=== PATIENT | male | born 1950 | race Caucasian/White ===

== ENCOUNTER 2018-07-02 06:15 | Observation (INO) | payer MEDICARE ==
[2018-07-02] MEDS ORDERED: Sodium Chloride 0.9% 2.5 ML Syringe FLUSH PRN ×2 (06:29→09:44)
[2018-07-02] MEDS ORDERED: Sodium Chloride 0.9% 10 ML Syringe FLUSH PRN ×2 (06:29→09:44)
[2018-07-02] MEDS ORDERED: Albuterol/Ipratropium 3.0-0.5 MG/3 ML Neb Soln NEB ONE (06:29)
--- NOTE | 2018-07-02 06:39 | EDM.PDOC ---
ED HPI GENERAL MEDICAL PROBLEM - General Chief Complaint: Syncope Stated Complaint: PASSED OUT Time Seen by Provider: 07/02/18 06:17 - History of Present Illness INITIAL COMMENTS - FREE TEXT/NARRATIVE: HISTORY AND PHYSICAL: History of present illness: The patient is a 68-year-old man who is visiting from [place] and has been here for about a month and presents after coughing so hard this morning approximately an hour and a half ago that he passed out. The patient states that he has a history of hypertension hypothyroidism and has had peripheral vascular disease with stents in his legs but no cardiac problems, abdominal/ stomach surgery in the past with a residual ventral wall hernia and a history of an ascending aortic aneurysm that his doctor at home is watching and who says that approximately a week or so ago he was having coughing and upper respiratory symptoms and went to a local walk-in clinic. He was given a nebulizer treatment and inhaler for home as well as Zithromax and prednisone all of which he has finished. He says that he has been eating and drinking normally and has no abdominal problems vomiting or diarrhea and no extremity complaints neck or back complaints. He says that he was sleeping when he woke up suddenly and had a coughing episode and that got up to go to the bathroom and then proceeded to have a syncopal event. He said the next thing he recalls after coughing in the bathroom was that he was on the ground with his over him. The patient says that he has no head neck or back pain but has some discomfort at his left posterior ribs and soft tissue flank and has a small skin tear on his left forearm. He denies fever or any fevers with his symptomatology for which she was seen at the urgent care. As any extremity pain and says that he does have chronic episodic peripheral edema of his legs and he has some now currently. He does not feel nauseated and he only feels a little bit gurgly and short of breath but not as bad as earlier. He says he feels like he is wheezy when he is breathing and he feels that internally. He has no left- sided chest pain and no neurosensory changes. He ambulated into the ED and came in through triage with his . The tells me at bedside that the patient has been coughing up very thick mucus since he was seen at the urgent care. Review of systems: As per history of present illness and below otherwise all systems reviewed and negative. Past medical history: As per history of present illness and as reviewed below otherwise noncontributory. Surgical history: As per history of present illness and as reviewed below otherwise noncontributory. Social history: No reported history of drug or alcohol abuse. Family history: As per history of present illness and as reviewed below otherwise noncontributory. Physical exam: General: Well-developed well-nourished overweight man who is nontoxic and speaking clearly and easily in the ED. His vital signs were noted by me. He is not breathless on evaluation. His O2 sat on room air was 92%. HEENT: Atraumatic, normocephalic, pupils reactive, negative for conjunctival pallor or scleral icterus, mucous membranes moist, throat clear, neck supple, nontender, trachea midline. He has no palpable deformities of his scalp and facial bones are intact without any soft tissue injuries appreciated in these areas and there are no midline step-offs in his defects of the cervical spine. Lungs: Diminished breath sounds in the bases left greater than right but there is no stridor or wheezing appreciated, breath sounds equal bilaterally, chest nontender. He has no bony deformities crepitus or tenderness with palpation of the ribs anteriorly but at the posterior left ribs there is some tenderness and there is an ill-defined area of abrasion/ecchymosis seen at the posterior left ribs extending down the left flank soft tissue to the posterior iliac crest area. There is no palpable bony deformities or crepitus here. Heart: S1S2, regular rate and rhythm no overt murmurs are appreciated Abdomen: Soft, nondistended, nontender. Patient has a well-healed mid abdominal scar with a very large ventral wall hernia which is not tender and bowel sounds are normoactive. Negative for masses or hepatosplenomegaly. Negative for costovertebral tenderness. Pelvis: Stable nontender. No bony hip tenderness on lateral palpation Genitourinary: Deferred. Rectal: Deferred. Extremities: Atraumatic full range of motion of all extremities with the exception of the left volar forearm with there is a small area of skin tear but no bony deformities or soft tissue swelling and a very superficial abrasion at the right knee without bony deformities defects or soft tissue swelling. The legs are, negative for cords or calf pain. Neurovascular unremarkable. The patient does have trace pedal edema bilaterally and no discrete calf tenderness. Neuro: Awake, alert, oriented. Cranial nerves II through XII unremarkable. Cerebellum unremarkable. Motor and sensory unremarkable throughout. Exam nonfocal. Gait was steady into the ED Back: There are no midline step-offs tenderness defects of the thoracic or lumbar spine and the posterior lower left rib area and flank area are as described above Diagnostics: EKG CBC CMP INR lipase troponin UA CT scan of the head chest abdomen and pelvis , BNP 1 view chest x-ray Therapeutics: IV O2 monitor duo neb Solumedrol IV fluids After my initial interview with the patient and nursing was in placing a line and interviewing the patient the patient started having a coughing spasm where he clearly was exhibiting great work of breathing and some audible wheezing and stridor and he desaturated down to 69% until he was able to expectorate a large amount of thick mucus. The patient does not lose consciousness and is at bedside stating that this is what he has been doing with this thick mucus is having similar coughing events. This appears to be what the trigger was for his syncopal event this morning. 0645: I discussed this case with Dr. Forde as this patient will shortly be an admission and I wanted to give him the background and course of events up to this point. We will recontact him with more information once we get testing results back. 0700: All testing results have been endorsed to Dr. Parry to follow-up and develop a care plan. I have discussed this case with Dr. Forde so he is aware of this case as he will shortly be an admission. He accepts the case but would like more information and Dr. Parry we'll recontact him with that information. Impression: Syncopal event post tussive with left back contusions and scattered abrasions, dyspnea with history of recent upper respiratory tract infection Definitive disposition and diagnosis as appropriate pending reevaluation and review of above. 1915pm: According to report from Dr. Parry this evening when I told her about this case she followed up on all testing results and admit the patient. He did not have any other episodes of bronchospasm or coughing while in the ED and remained stable. She did discuss all testing results with Dr. Forde who accepted the patient for admission left mid back Pain Score (Numeric/FACES): 7 - Related Data Allergies Allergy/AdvReac Type Severity Reaction Status Date / Time No Known Allergies Allergy Verified 07/02/18 06:21 Home Meds: Home Meds Allopurinol [Zyloprim] 100 mg PO BEDTIME 07/02/18 [History] Calcium Carbonate [Calcium] 600 mg PO BEDTIME 07/02/18 [History] Cholecalciferol (Vitamin D3) [Vitamin D] 2,000 unit PO BEDTIME 07/02/18 [History ] Clopidogrel [Plavix] 75 mg PO ACBREAKFAST 07/02/18 [History] Cyanocobalamin (Vitamin B-12) [Cyanocobalamin Injection] 1,000 mcg IJ ASDIRECTED 07/02/18 [History] Levothyroxine [Synthroid] 50 mcg PO ACBREAKFAST 07/02/18 [History] Metoprolol Tartrate 25 mg PO ACBREAKFAST 07/02/18 [History] Pantoprazole Sodium [Protonix] 40 mg PO BEDTIME 07/02/18 [History] Sertraline [Zoloft] 12.5 mg BEDTIME 07/02/18 [History] Spironolactone 50 mg PO ACBREAKFAST 07/02/18 [History] Tamsulosin [Tamsulosin 24 Hr] 0.4 mg PO BEDTIME 07/02/18 [History] atorvaSTATin [Lipitor] 10 mg PO BEDTIME 07/02/18 [History] ED ROS GENERAL - Review of Systems Review Of Systems: ROS reveals no pertinent complaints other than HPI. ED EXAM, GENERAL - Physical Exam Exam: See Below (see dictation) Course - Vital Signs Last Recorded V/S: Last Vital Signs Temp 36.9 C 07/02/18 16:00 Pulse 96 07/02/18 16:00 Resp 16 07/02/18 16:00 BP 133/81 07/02/18 16:00 Pulse Ox 98 07/02/18 16:00 - Orders/Labs/Meds Orders: Active Orders 24 hr Category Date Time Status Abdomen Pelvis wo Cont [CT] Stat Exams 07/02/18 06:28 Taken Chest 1V Frontal [CR] Stat Exams 07/02/18 06:40 Taken Chest wo Cont [CT] Stat Exams 07/02/18 06:28 Taken Head wo Cont [CT] Stat Exams 07/02/18 06:27 Taken Sodium Chloride 0.9% [Saline Flush] Med 07/02/18 06:29 Active 10 ml FLUSH ASDIRECTED PRN Sodium Chloride 0.9% [Saline Flush] Med 07/02/18 06:29 Active 2.5 ml FLUSH ASDIRECTED PRN Saline Lock Insert [OM.PC] Stat Oth 07/02/18 06:27 Ordered Medication Orders Acetaminophen (Tylenol) 650 mg PO Q4H PRN PRN Reason: Pain (Mild 1-3)/fever Last Admin: 07/02/18 10:51 Dose: 650 mg Albuterol/Ipratropium (Duoneb 3.0-0.5 Mg/3 Ml) 3 ml NEB Q4HRRT [facility] Last Admin: 07/02/18 17:28 Dose: 3 ml Allopurinol (Zyloprim) 100 mg PO BEDTIME MICHELLE Atorvastatin Calcium (Lipitor) 10 mg PO BEDTIME [facility] Calcium Citrate (Calcitrate + Vit D Cap (315 Mg/250 Units)) 2 each PO BEDTIME MICHELLE Cholecalciferol (Vitamin D3) 2,000 units PO BEDTIME [facility] Clopidogrel Bisulfate (Plavix) 75 mg PO ACBREAKFAST [facility] Enoxaparin Sodium (Lovenox) 40 mg SUBCUT Q24H [facility] Last Admin: 07/02/18 10:51 Dose: 40 mg Levofloxacin/Dextrose 750 mg/ (Premix) 150 mls @ 100 mls/hr IV Q24H [facility] Last Admin: 07/02/18 10:50 Dose: 100 mls/hr Sodium Chloride (Normal Saline) 1,000 mls @ 150 mls/hr IV ASDIRECTED [facility] Last Admin: 07/02/18 14:09 Dose: 150 mls/hr Levothyroxine Sodium (Synthroid) 50 mcg PO ACBREAKFAST [facility] Methylprednisolone Sodium Succinate (Solu-Medrol) 125 mg IVPUSH Q8H [facility] Last Admin: 07/02/18 14:05 Dose: 125 mg Metoprolol Tartrate (Lopressor) 25 mg PO ACBREAKFAST [facility] Ondansetron HCl (Zofran) 4 mg IVPUSH Q4H PRN PRN Reason: Nausea/Vomiting Pantoprazole Sodium (Protonix) 40 mg PO BEDTIME [facility] Sertraline HCl (Zoloft) 12.5 mg PO BEDTIME [facility] Sodium Chloride (Saline Flush) 10 ml FLUSH ASDIRECTED PRN PRN Reason: Keep Vein Open Last Admin: 07/02/18 08:13 Dose: 10 ml Sodium Chloride (Saline Flush) 2.5 ml FLUSH ASDIRECTED PRN PRN Reason: Keep Vein Open Sodium Chloride (Saline Flush) 10 ml FLUSH ASDIRECTED PRN PRN Reason: Keep Vein Open Sodium Chloride (Saline Flush) 2.5 ml FLUSH ASDIRECTED PRN PRN Reason: Keep Vein Open Spironolactone (Aldactone) 50 mg PO ACBREAKFAST MICHELLE Tamsulosin HCl (Flomax) 0.4 mg PO BEDTIME MICHELLE Labs: Laboratory Tests 07/02/18 07/02/18 07/02/18 Range/Units 06:30 06:30 06:30 WBC 7.23 (4.0-11.0) K/uL RBC 4.19 L (4.50-5.90) M/uL Hgb 13.0 (13.0-17.0) g/dL Hct 41.2 (38.0-50.0) % MCV 98.3 H (80.0-98.0) fL MCH 31.0 (27.0-32.0) pg MCHC 31.6 (31.0-37.0) g/dL RDW Std Deviation 51.4 (28.0-62.0) fl RDW Coeff of Michael 15 (11.0-15.0) % Plt Count 157 (150-400) K/uL MPV 11.20 (7.40-12.00) fL Neut % (Auto) 60.7 (48.0-80.0) % Lymph % (Auto) 24.9 (16.0-40.0) % [place] % (Auto) 11.3 (0.0-15.0) % Eos % (Auto) 2.5 (0.0-7.0) % Baso % (Auto) 0.6 (0.0-1.5) % Neut # (Auto) 4.4 (1.4-5.7) K/uL Lymph # (Auto) 1.8 (0.6-2.4) K/uL [place] # (Auto) 0.8 (0.0-0.8) K/uL Eos # (Auto) 0.2 (0.0-0.7) K/uL Baso # (Auto) 0.0 (0.0-0.1) K/uL INR 1.02 Lactate (0.20-2.00) mmol/L Sodium 143 (136-148) mmol/L Potassium 3.8 (3.5-5.1) mmol/L Chloride 109 H (98-107) mmol/L Carbon Dioxide 25.4 (21.0-32.0) mmol/L BUN 22 H (7.0-18.0) mg/dL Creatinine 1.5 H (0.8-1.3) mg/dL Est Cr Clr Drug Dosing 51.01 mL/min Estimated GFR (MDRD) 46.4 ml/min Glucose 107 H (74-106) mg/dL Calcium 8.2 L (8.5-10.1) mg/dL Total Bilirubin 0.5 (0.2-1.0) mg/dL AST 17 (15-37) IU/L ALT 16 (14-63) IU/L Alkaline Phosphatase 104 (46-116) U/L Troponin I < 0.050 (0.000-0.056) ng/mL B-Natriuretic Peptide (<100) PG/ML Total Protein 6.9 (6.4-8.2) g/dL Albumin 3.1 L (3.4-5.0) g/dL Globulin 3.8 H (2.0-3.5) g/dL Albumin/Globulin Ratio 0.8 L (1.3-2.8) Lipase 159 (73-393) U/L 07/02/18 07/02/18 Range/Units 06:30 06:55 WBC (4.0-11.0) K/uL RBC (4.50-5.90) M/uL Hgb (13.0-17.0) g/dL Hct (38.0-50.0) % MCV (80.0-98.0) fL MCH (27.0-32.0) pg MCHC (31.0-37.0) g/dL RDW Std Deviation (28.0-62.0) fl RDW Coeff of Michael (11.0-15.0) % Plt Count (150-400) K/uL MPV (7.40-12.00) fL Neut % (Auto) (48.0-80.0) % Lymph % (Auto) (16.0-40.0) % [place] % (Auto) (0.0-15.0) % Eos % (Auto) (0.0-7.0) % Baso % (Auto) (0.0-1.5) % Neut # (Auto) (1.4-5.7) K/uL Lymph # (Auto) (0.6-2.4) K/uL [place] # (Auto) (0.0-0.8) K/uL Eos # (Auto) (0.0-0.7) K/uL Baso # (Auto) (0.0-0.1) K/uL INR Lactate 2.5 H (0.20-2.00) mmol/L Sodium (136-148) mmol/L Potassium (3.5-5.1) mmol/L Chloride (98-107) mmol/L Carbon Dioxide (21.0-32.0) mmol/L BUN (7.0-18.0) mg/dL Creatinine (0.8-1.3) mg/dL Est Cr Clr Drug Dosing mL/min Estimated GFR (MDRD) ml/min Glucose (74-106) mg/dL Calcium (8.5-10.1) mg/dL Total Bilirubin (0.2-1.0) mg/dL AST (15-37) IU/L ALT (14-63) IU/L Alkaline Phosphatase (46-116) U/L Troponin I (0.000-0.056) ng/mL B-Natriuretic Peptide 18 (<100) PG/ML Total Protein (6.4-8.2) g/dL Albumin (3.4-5.0) g/dL Globulin (2.0-3.5) g/dL Albumin/Globulin Ratio (1.3-2.8) Lipase (73-393) U/L Meds: Medications Generic Name Dose Route Start Last Admin Trade Name Freq PRN Reason Stop Dose Admin Acetaminophen 650 mg 07/02/18 09:44 07/02/18 10:51 Tylenol PO 650 mg Q4H PRN Administration Pain (Mild 1-3)/fever Albuterol/Ipratropium 3 ml 07/02/18 18:00 07/02/18 17:28 Duoneb 3.0-0.5 Mg/3 Ml NEB 3 ml Q4HRRT MICHELLE Administration Allopurinol 100 mg 07/02/18 21:00 Zyloprim PO BEDTIME MICHELLE Atorvastatin Calcium 10 mg 07/02/18 21:00 Lipitor PO BEDTIME MICHELLE Calcium Citrate 2 each 07/02/18 21:00 Calcitrate + Vit D Cap (315 Mg/250 Units) PO BEDTIME [facility] Cholecalciferol 2,000 units 07/02/18 21:00 Vitamin D3 PO BEDTIME [facility] Clopidogrel Bisulfate 75 mg 07/03/18 07:30 Plavix PO ACBREAKFAST [facility] Enoxaparin Sodium 40 mg 07/02/18 09:45 07/02/18 10:51 Lovenox SUBCUT 40 mg Q24H MICHELLE Administration Levofloxacin/Dextrose 750 mg/ 150 mls @ 100 mls/hr 07/02/18 09:45 07/02/18 10 :50 Premix IV 100 mls/hr Q24H MICHELLE Administration Sodium Chloride 1,000 mls @ 150 mls/hr 07/02/18 09:45 07/02/18 14:09 Normal Saline IV 150 mls/hr ASDIRECTED MICHELLE Administration Levothyroxine Sodium 50 mcg 07/03/18 07:30 Synthroid PO ACBREAKFAST [facility] Methylprednisolone Sodium Succinate 125 mg 07/02/18 12:00 07/02/18 14:05 Solu-Medrol IVPUSH 125 mg Q8H MICHELLE Administration Metoprolol Tartrate 25 mg 07/03/18 07:30 Lopressor PO ACBREAKFAST [facility] Ondansetron HCl 4 mg 07/02/18 09:44 Zofran IVPUSH Q4H PRN Nausea/Vomiting Pantoprazole Sodium 40 mg 07/02/18 21:00 Protonix PO BEDTIME [facility] Sertraline HCl 12.5 mg 07/02/18 21:00 Zoloft PO BEDTIME [facility] Sodium Chloride 10 ml 07/02/18 06:29 07/02/18 08:13 Saline Flush FLUSH 10 ml ASDIRECTED PRN Administration Keep Vein Open Sodium Chloride 2.5 ml 07/02/18 06:29 Saline Flush FLUSH ASDIRECTED PRN Keep Vein Open Sodium Chloride 10 ml 07/02/18 09:44 Saline Flush FLUSH ASDIRECTED PRN Keep Vein Open Sodium Chloride 2.5 ml 07/02/18 09:44 Saline Flush FLUSH ASDIRECTED PRN Keep Vein Open Spironolactone 50 mg 07/03/18 07:30 Aldactone PO ACBREAKFAST MICHELLE Tamsulosin HCl 0.4 mg 07/02/18 21:00 Flomax PO BEDTIME MICHELLE Discontinued Medications Generic Name Dose Route Start Last Admin Trade Name Freq PRN Reason Stop Dose Admin Albuterol/Ipratropium 3 ml 07/02/18 06:29 07/02/18 06:42 Duoneb 3.0-0.5 Mg/3 Ml NEB 07/02/18 06:30 3 ml ONETIME ONE Administration Albuterol/Ipratropium 3 ml 07/02/18 09:44 Duoneb 3.0-0.5 Mg/3 Ml NEB Q4HRRT PRN Shortness Of Breath/wheezing Sodium Chloride 1,000 mls @ 999 mls/hr 07/02/18 06:58 07/02/18 08:00 Normal Saline IV 07/02/18 07:58 83 mls/hr .Bolus ONE Infusion Methylprednisolone Sodium Succinate 125 mg 07/02/18 06:42 07/02/18 06:56 Solu-Medrol IVPUSH 07/02/18 06:43 125 mg ONETIME ONE Administration Morphine Sulfate 2 mg 07/02/18 08:03 07/02/18 08:13 Morphine IVPUSH 07/02/18 08:04 2 mg ONETIME ONE Administration Departure - Departure Time of Disposition: 08:00 Disposition: Admitted As Inpatient 65 Condition: Good Clinical Impression: Bronchospasm, acute Syncope Qualifiers: Syncope type: vasovagal syncope Qualified Code(s): R55 - Syncope and collapse - Discharge Information - My Orders Last 24 Hours: My Active Orders 07/02/18 06:27 Head wo Cont [CT] Stat Saline Lock Insert [OM.PC] Stat 07/02/18 06:28 Abdomen Pelvis wo Cont [CT] Stat Chest wo Cont [CT] Stat 07/02/18 06:29 Sodium Chloride 0.9% [Saline Flush] 10 ml FLUSH ASDIRECTED PRN Sodium Chloride 0.9% [Saline Flush] 2.5 ml FLUSH ASDIRECTED PRN 07/02/18 06:40 Chest 1V Frontal [CR] Stat - Assessment/Plan Last 24 Hours: My Active Orders 07/02/18 06:27 Head wo Cont [CT] Stat Saline Lock Insert [OM.PC] Stat 07/02/18 06:28 Abdomen Pelvis wo Cont [CT] Stat Chest wo Cont [CT] Stat 07/02/18 06:29 Sodium Chloride 0.9% [Saline Flush] 10 ml FLUSH ASDIRECTED PRN Sodium Chloride 0.9% [Saline Flush] 2.5 ml FLUSH ASDIRECTED PRN 07/02/18 06:40 Chest 1V Frontal [CR] Stat
[2018-07-02] MEDS ORDERED: methylPREDNISolone Sodium Succinate 125 MG/2 ML SDV IVPUSH ONE (06:42)
[2018-07-02 06:55] LABS: CHLORIDE,CL 109 mmol/L (98-107); SODIUM,NA 143 mmol/L (136-148)
[2018-07-02] MEDS ORDERED: Sodium Chloride 0.9% 1,000 ML IV ONE (06:58)
[2018-07-02] MEDS ORDERED: Morphine 2 MG/ML Syringe IVPUSH ONE (08:03)
[2018-07-02] MEDS ORDERED: Albuterol/Ipratropium 3.0-0.5 MG/3 ML Neb Soln NEB PRN (09:44)
[2018-07-02] MEDS ORDERED: Ondansetron 4 MG/2 ML SDV IVPUSH PRN (09:44)
[2018-07-02] MEDS: Levofloxacin/Dextrose 5%-Water 750 MG in Premix Bag 1 BAG IV SCH (10:50)
[2018-07-02] MEDS: Enoxaparin 40 MG/0.4 ML Syringe SUBCUT SCH (10:51)
[2018-07-02] MEDS: Acetaminophen 325 MG Tab PO PRN ×2 (10:51→21:23)
--- NOTE | 2018-07-02 12:09 | PCM.HP ---
H&P History of Present Illness - General Date of Service: 07/02/18 Admit Problem/Dx: Admission Diagnosis/Problem Admission Diagnosis/Problem Syncope - History of Present Illness Initial Comments - Free Text/Narative: The patient is a 68-year-old male who presented to the ER last night after a syncopal event. The patient reports that he had a coughing episode, he went to the bathroom, coughed some more and then woke up to find his standing over him. He denies hitting his head or any trauma. He was diagnosed with a URI last week and given a Z-Benigno, dose of steroids, and albuterol inhaler. He notes for the past day he's had to use his inhaler more often because he has been wheezing and couldn't catch his breath with coughing. In the ER, he had one of these coughing fits and desaturated to 69%. He was given duo nebs, Solu-Medrol and placed on O2. Initial lab work was done, he did not have a white count, troponin was negative, BNP was WNL, his lactate was elevated, and his creatinine was elevated. EKG showed sinus rhythm with borderline LAD, no ST changes. In the ER, they also got multiple imaging studies, a chest x-ray that showed borderline enlarged heart with low-grade pulmonary vascular congestion. CT of the head did not show any acute intracranial abnormalities. CT of the abdomen and pelvis did not show any acute traumatic injury, but did see renal lesions believed to be cysts. The CT chest showed no acute traumatic injury. When speaking to him on the floor. He states that he is still coughing, but he feels a little better. He denies any fever, chills or chest pain. left mid back Pain Score (Numeric/FACES): 7 - Related Data Allergies/Adverse Reactions: Allergies Allergy/AdvReac Type Severity Reaction Status Date / Time No Known Allergies Allergy Verified 07/02/18 06:21 Home Medications: Home Meds Allopurinol [Zyloprim] 100 mg PO BEDTIME 07/02/18 [History] Calcium Carbonate [Calcium] 600 mg PO BEDTIME 07/02/18 [History] Cholecalciferol (Vitamin D3) [Vitamin D] 2,000 unit PO BEDTIME 07/02/18 [History ] Clopidogrel [Plavix] 75 mg PO ACBREAKFAST 07/02/18 [History] Cyanocobalamin (Vitamin B-12) [Cyanocobalamin Injection] 1,000 mcg IJ ASDIRECTED 07/02/18 [History] Levothyroxine [Synthroid] 50 mcg PO ACBREAKFAST 07/02/18 [History] Metoprolol Tartrate 25 mg PO ACBREAKFAST 07/02/18 [History] Pantoprazole Sodium [Protonix] 40 mg PO BEDTIME 07/02/18 [History] Sertraline [Zoloft] 12.5 mg BEDTIME 07/02/18 [History] Spironolactone 50 mg PO ACBREAKFAST 07/02/18 [History] Tamsulosin [Tamsulosin 24 Hr] 0.4 mg PO BEDTIME 07/02/18 [History] atorvaSTATin [Lipitor] 10 mg PO BEDTIME 07/02/18 [History] Past Medical History HEENT History: Reports: Cataract Cardiovascular History: Reports: Hypertension Respiratory History: Reports: None Gastrointestinal History: Reports: Bowel Obstruction, GERD, GI Bleed Genitourinary History: Reports: Other (See Below) Other Genitourinary History: kidney failure in march 2016 Musculoskeletal History: Reports: None Neurological History: Reports: None Psychiatric History: Reports: Depression Endocrine/Metabolic History: Reports: Hypothyroidism Hematologic History: Reports: Anemia Oncologic (Cancer) History: Reports: None Dermatologic History: Reports: None - Infectious Disease History Infectious Disease History: Reports: Chicken Pox, Measles, Mumps - Past Surgical History HEENT Surgical History: Reports: Cataract Surgery Cardiovascular Surgical History: Reports: Aneurysm Other Cardiovascular Surgeries/Procedures: acsending aorta aneurysm, stents in both legs GI Surgical History: Reports: Cholecystectomy, Other (See Below) Other GI Surgeries/Procedures: gastric bypass Male Surgical History: Reports: None Social & Family History - Family History Family Medical History: Noncontributory - Tobacco Use Smoking Status *Q: Never Smoker Second Hand Smoke Exposure: No - Caffeine Use Caffeine Use: Reports: Soda - Alcohol Use Alcohol Use History: No - Recreational Drug Use Recreational Drug Use: No H&P Review of Systems - Review of Systems: Review Of Systems: See Below General: Reports: No Symptoms HEENT: Reports: No Symptoms Pulmonary: Reports: Shortness of Breath, Wheezing, Cough, Sputum Cardiovascular: Reports: Edema, Syncope. Denies: Chest Pain Gastrointestinal: Reports: No Symptoms Genitourinary: Reports: No Symptoms Musculoskeletal: Reports: No Symptoms Skin: Reports: No Symptoms Psychiatric: Reports: No Symptoms Neurological: Reports: Syncope. Denies: Confusion, Headache, Numbness, Tingling Hematologic/Lymphatic: Reports: No Symptoms Immunologic: Reports: No Symptoms Exam - Exam Exam: See Below - Vital Signs Vital Signs: Last Vital Signs Temp 99.1 F 07/02/18 09:45 Pulse 85 07/02/18 09:45 Resp 20 07/02/18 09:45 BP 146/86 H 07/02/18 09:45 Pulse Ox 97 07/02/18 06:57 Weight: 144.5 g - Exam Quality Assessment: Supplemental Oxygen General: Alert, Oriented, Cooperative HEENT: Conjunctiva Clear, EOMI, Mucosa Moist & [place], Posterior Pharynx Clear, Pupils Equal, Pupils Reactive Neck: Supple Lungs: Normal Respiratory Effort, Decreased Breath Sounds, Wheezing. No: Crackles, Rales Cardiovascular: Regular Rate, Regular Rhythm GI/Abdominal Exam: Normal Bowel Sounds, Soft, Non-Tender, No Distention Extremities: Normal Inspection, Pedal Edema (+1 pitting L>R) Skin: Warm, Dry Neuro Extensive - Motor, Sensory, Reflexes: CN II-XII Intact Psychiatric: Alert, Normal Affect, Normal Mood - Patient Data Lab Results Last 24 hrs: Laboratory Results - last 24 hr 07/02/18 07/02/18 07/02/18 Range/Units 06:30 06:30 06:30 WBC 7.23 (4.0-11.0) K/uL RBC 4.19 L (4.50-5.90) M/uL Hgb 13.0 (13.0-17.0) g/dL Hct 41.2 (38.0-50.0) % MCV 98.3 H (80.0-98.0) fL MCH 31.0 (27.0-32.0) pg MCHC 31.6 (31.0-37.0) g/dL RDW Std Deviation 51.4 (28.0-62.0) fl RDW Coeff of Michael 15 (11.0-15.0) % Plt Count 157 (150-400) K/uL MPV 11.20 (7.40-12.00) fL Neut % (Auto) 60.7 (48.0-80.0) % Lymph % (Auto) 24.9 (16.0-40.0) % [place] % (Auto) 11.3 (0.0-15.0) % Eos % (Auto) 2.5 (0.0-7.0) % Baso % (Auto) 0.6 (0.0-1.5) % Neut # (Auto) 4.4 (1.4-5.7) K/uL Lymph # (Auto) 1.8 (0.6-2.4) K/uL [place] # (Auto) 0.8 (0.0-0.8) K/uL Eos # (Auto) 0.2 (0.0-0.7) K/uL Baso # (Auto) 0.0 (0.0-0.1) K/uL INR 1.02 Lactate (0.20-2.00) mmol/L Sodium 143 (136-148) mmol/L Potassium 3.8 (3.5-5.1) mmol/L Chloride 109 H (98-107) mmol/L Carbon Dioxide 25.4 (21.0-32.0) mmol/L BUN 22 H (7.0-18.0) mg/dL Creatinine 1.5 H (0.8-1.3) mg/dL Est Cr Clr Drug Dosing 51.01 mL/min Estimated GFR (MDRD) 46.4 ml/min Glucose 107 H (74-106) mg/dL Calcium 8.2 L (8.5-10.1) mg/dL Total Bilirubin 0.5 (0.2-1.0) mg/dL AST 17 (15-37) IU/L ALT 16 (14-63) IU/L Alkaline Phosphatase 104 (46-116) U/L Troponin I < 0.050 (0.000-0.056) ng/mL B-Natriuretic Peptide (<100) PG/ML Total Protein 6.9 (6.4-8.2) g/dL Albumin 3.1 L (3.4-5.0) g/dL Globulin 3.8 H (2.0-3.5) g/dL Albumin/Globulin Ratio 0.8 L (1.3-2.8) Lipase 159 (73-393) U/L 07/02/18 07/02/18 07/02/18 Range/Units 06:30 06:55 11:20 WBC (4.0-11.0) K/uL RBC (4.50-5.90) M/uL Hgb (13.0-17.0) g/dL Hct (38.0-50.0) % MCV (80.0-98.0) fL MCH (27.0-32.0) pg MCHC (31.0-37.0) g/dL RDW Std Deviation (28.0-62.0) fl RDW Coeff of Michael (11.0-15.0) % Plt Count (150-400) K/uL MPV (7.40-12.00) fL Neut % (Auto) (48.0-80.0) % Lymph % (Auto) (16.0-40.0) % [place] % (Auto) (0.0-15.0) % Eos % (Auto) (0.0-7.0) % Baso % (Auto) (0.0-1.5) % Neut # (Auto) (1.4-5.7) K/uL Lymph # (Auto) (0.6-2.4) K/uL [place] # (Auto) (0.0-0.8) K/uL Eos # (Auto) (0.0-0.7) K/uL Baso # (Auto) (0.0-0.1) K/uL INR Lactate 2.5 H 1.9 (0.20-2.00) mmol/L Sodium (136-148) mmol/L Potassium (3.5-5.1) mmol/L Chloride (98-107) mmol/L Carbon Dioxide (21.0-32.0) mmol/L BUN (7.0-18.0) mg/dL Creatinine (0.8-1.3) mg/dL Est Cr Clr Drug Dosing mL/min Estimated GFR (MDRD) ml/min Glucose (74-106) mg/dL Calcium (8.5-10.1) mg/dL Total Bilirubin (0.2-1.0) mg/dL AST (15-37) IU/L ALT (14-63) IU/L Alkaline Phosphatase (46-116) U/L Troponin I (0.000-0.056) ng/mL B-Natriuretic Peptide 18 (<100) PG/ML Total Protein (6.4-8.2) g/dL Albumin (3.4-5.0) g/dL Globulin (2.0-3.5) g/dL Albumin/Globulin Ratio (1.3-2.8) Lipase (73-393) U/L Result Diagrams: 07/02/18 06:30 07/02/18 06:30 Problem List Initiated/Reviewed/Updated: Yes Orders Last 24hrs: Active Orders 24 hr Category Date Time Status Patient Status [ADT] Stat ADT 07/02/18 08:56 Active Cardiac Monitoring [RC] . DIRECTED Care 07/02/18 06:27 Active Height and Weight [RC] UPON Care 07/02/18 09:44 Active Intake and Output [RC] Q12H Care 07/02/18 09:45 Active Peripheral IV Care [RC] . DIRECTED Care 07/02/18 09:44 Active Pulse Oximetry [RC] CONTINUOUS Care 07/02/18 09:45 Active RT Aerosol Therapy [RC] ASDIRECTED Care 07/02/18 09:51 Active Up With Assistance [RC] ASDIRECTED Care 07/02/18 09:44 Active VTE/DVT Education [RC] PER UNIT ROUTINE Care 07/02/18 09:45 Active Vital Signs [RC] Q4H Care 07/02/18 09:45 Active Regular Diet [DIET] Diet 07/02/18 Breakfast Active Abdomen Pelvis wo Cont [CT] Stat Exams 07/02/18 06:28 Taken Chest 1V Frontal [CR] Stat Exams 07/02/18 06:40 Taken Chest wo Cont [CT] Stat Exams 07/02/18 06:28 Taken Head wo Cont [CT] Stat Exams 07/02/18 06:27 Taken CBC WITH AUTO DIFF [HEME] AM Lab 07/03/18 05:11 Ordered COMPREHENSIVE METABOLIC PN,CMP [CHEM] AM Lab 07/03/18 05:11 Ordered LACTIC ACID,WHOLE BLOOD [BG] Q4H Lab 07/02/18 12:00 Ordered LACTIC ACID,WHOLE BLOOD [BG] Q4H Lab 07/02/18 16:00 Ordered LACTIC ACID,WHOLE BLOOD [BG] Q4H Lab 07/02/18 20:00 Ordered LACTIC ACID,WHOLE BLOOD [BG] Q4H Lab 07/03/18 00:00 Ordered UA W/MICROSCOPIC [URIN] Stat Lab 07/02/18 06:27 Ordered Acetaminophen [Tylenol] Med 07/02/18 09:44 Active 650 mg PO Q4H PRN Albuterol/Ipratropium [DuoNeb 3.0-0.5 MG/3 ML] Med 07/02/18 09:44 Active 3 ml NEB Q4HRRT PRN Enoxaparin [Lovenox] Med 07/02/18 09:45 Active 40 mg SUBCUT Q24H Levofloxacin/Dextrose 5%-Water [Levaquin in D5W 750 MG/ Med 07/02/18 09:45 Active 150 ML] 750 mg Premix Bag 1 bag IV Q24H Ondansetron [Zofran] Med 07/02/18 09:44 Active 4 mg IVPUSH Q4H PRN Sodium Chloride 0.9% [Normal Saline] 1,000 ml Med 07/02/18 09:45 Active IV ASDIRECTED Sodium Chloride 0.9% [Saline Flush] Med 07/02/18 06:29 Active 10 ml FLUSH ASDIRECTED PRN Sodium Chloride 0.9% [Saline Flush] Med 07/02/18 09:44 Active 10 ml FLUSH ASDIRECTED PRN Sodium Chloride 0.9% [Saline Flush] Med 07/02/18 06:29 Active 2.5 ml FLUSH ASDIRECTED PRN Sodium Chloride 0.9% [Saline Flush] Med 07/02/18 09:44 Active 2.5 ml FLUSH ASDIRECTED PRN methylPREDNISolone Sod Succ [Solu-MEDROL] Med 07/02/18 12:00 Ordered 125 mg IVPUSH Q8H Peripheral IV Insertion Adult [OM.PC] Routine Oth 07/02/18 09:44 Ordered Saline Lock Insert [OM.PC] Routine Oth 07/02/18 09:44 Ordered Saline Lock Insert [OM.PC] Stat Oth 07/02/18 06:27 Ordered Sequential Compression Device [OM.PC] Per Unit Routine Oth 07/02/18 09:45 Ordered Medication Orders Acetaminophen (Tylenol) 650 mg PO Q4H PRN PRN Reason: Pain (Mild 1-3)/fever Last Admin: 07/02/18 10:51 Dose: 650 mg Albuterol/Ipratropium (Duoneb 3.0-0.5 Mg/3 Ml) 3 ml NEB Q4HRRT PRN PRN Reason: Shortness Of Breath/wheezing Enoxaparin Sodium (Lovenox) 40 mg SUBCUT Q24H [facility] Last Admin: 07/02/18 10:51 Dose: 40 mg Levofloxacin/Dextrose 750 mg/ (Premix) 150 mls @ 100 mls/hr IV Q24H [facility] Last Admin: 07/02/18 10:50 Dose: 100 mls/hr Sodium Chloride (Normal Saline) 1,000 mls @ 150 mls/hr IV ASDIRECTED [facility] Methylprednisolone Sodium Succinate (Solu-Medrol) 125 mg IVPUSH Q8H [facility] Ondansetron HCl (Zofran) 4 mg IVPUSH Q4H PRN PRN Reason: Nausea/Vomiting Sodium Chloride (Saline Flush) 10 ml FLUSH ASDIRECTED PRN PRN Reason: Keep Vein Open Last Admin: 07/02/18 08:13 Dose: 10 ml Sodium Chloride (Saline Flush) 2.5 ml FLUSH ASDIRECTED PRN PRN Reason: Keep Vein Open Sodium Chloride (Saline Flush) 10 ml FLUSH ASDIRECTED PRN PRN Reason: Keep Vein Open Sodium Chloride (Saline Flush) 2.5 ml FLUSH ASDIRECTED PRN PRN Reason: Keep Vein Open Assessment/Plan Comment:: 1. admit for observation 2. Code status- full 3. Vitals per routine 4. I/Os per routine 5. DVT prophylaxis with lovenox 6. Diet- heart healthy 7. Syncopal episode likely vasovagal related to coughing- monitor on telemetry 8. Bronchitis- duonebs q 4, solumedrol 125 mg q 8, continue levaquin. Monitor on pulse ox. Repeat lactate was normal 9. RADHA- will give IV fluids
[2018-07-02] MEDS: methylPREDNISolone Sodium Succinate 125 MG/2 ML SDV IVPUSH SCH ×2 (14:05→19:50)
[2018-07-02] MEDS: Sodium Chloride 0.9% 1,000 ML IV SCH ×2 (14:09→20:04)
[2018-07-02] MEDS: Albuterol/Ipratropium 3.0-0.5 MG/3 ML Neb Soln NEB SCH ×2 (17:28→21:32)
[2018-07-02] MEDS: oxyCODONE 5 MG Tab PO PRN (19:49)
[2018-07-02] MEDS: Pantoprazole 40 MG Tab.CR PO SCH (21:18)
[2018-07-02] MEDS: atorvaSTATin 10 MG Tab PO SCH (21:18)
[2018-07-02] MEDS: Allopurinol 100 MG Tab PO SCH (21:18)
[2018-07-02] MEDS: Cholecalciferol (Vitamin D3) 1,000 Unit Tab PO SCH (21:18)
[2018-07-02] MEDS: Tamsulosin 0.4 MG Cap.ER PO SCH (21:19)
[2018-07-02] MEDS: Sertraline 25 MG Tab PO SCH (21:19)
[2018-07-02] MEDS: Calcium Citrate/Vitamin D3 Tablet PO SCH (23:07)
[2018-07-03] MEDS: Albuterol/Ipratropium 3.0-0.5 MG/3 ML Neb Soln NEB SCH ×5 (01:49→17:33)
[2018-07-03] MEDS: oxyCODONE 5 MG Tab PO PRN ×4 (01:54→23:36)
[2018-07-03] MEDS: Sodium Chloride 0.9% 1,000 ML IV SCH ×3 (02:44→19:42)
[2018-07-03] MEDS: methylPREDNISolone Sodium Succinate 125 MG/2 ML SDV IVPUSH SCH ×3 (03:32→12:51)
[2018-07-03] MEDS: Metoprolol Tartrate 25 MG Tab PO SCH (06:39)
[2018-07-03] MEDS: Clopidogrel 75 MG Tab PO SCH (06:39)
[2018-07-03] MEDS: Levothyroxine 50 MCG Tab PO SCH (06:40)
[2018-07-03] MEDS: Spironolactone 25 MG Tab PO SCH (06:40)
--- NOTE | 2018-07-03 08:51 | PCM.PN ---
- General Info Date of Service: 07/03/18 Subjective Update: The patient is a 68 year old male admitted for syncopal event and bronchitis. The patient had a syncopal event yesterday at home after coughing episdoe, no syncope since admission. He reports his breathing is better but he is still requiring oxygen. He is complaining of left side flank pain. When he had his syncopal event he fell in the bathroom, he hit his back on the toilet, imaging was negative for injury. He denies any chest pain, abdominal pain, difficulty eating or drinking. - Review of Systems General: Reports: No Symptoms HEENT: Reports: No Symptoms Pulmonary: Reports: Shortness of Breath, Cough Cardiovascular: Reports: No Symptoms Gastrointestinal: Reports: No Symptoms Genitourinary: Reports: No Symptoms Musculoskeletal: Reports: Back Pain Skin: Reports: No Symptoms Neurological: Reports: No Symptoms Psychiatric: Reports: No Symptoms - Patient Data Vitals - Most Recent: Last Vital Signs Temp 98.6 F 07/03/18 04:00 Pulse 82 07/03/18 06:39 Resp 18 07/03/18 04:00 BP 106/66 07/03/18 06:39 Pulse Ox 97 07/03/18 04:00 Weight - Most Recent: 144.5 g I&O - Last 24 Hours: Intake & Output 07/02/18 07/03/18 07/03/18 22:59 06:59 14:59 Intake Total 600 2047 Output Total 850 650 Balance -250 1397 Lab Results Last 24 Hours: Laboratory Results - last 24 hr 07/02/18 07/02/18 07/03/18 Range/Units 11:20 13:20 05:56 WBC 7.97 (4.0-11.0) K/uL RBC 3.90 L (4.50-5.90) M/uL Hgb 11.8 L (13.0-17.0) g/dL Hct 37.4 L (38.0-50.0) % MCV 95.9 (80.0-98.0) fL MCH 30.3 (27.0-32.0) pg MCHC 31.6 (31.0-37.0) g/dL RDW Std Deviation 51.6 (28.0-62.0) fl RDW Coeff of Michael 15 (11.0-15.0) % Plt Count 149 L (150-400) K/uL MPV 11.20 (7.40-12.00) fL Neut % (Auto) 89.3 H (48.0-80.0) % Lymph % (Auto) 9.4 L (16.0-40.0) % [place] % (Auto) 1.3 (0.0-15.0) % Eos % (Auto) 0.0 (0.0-7.0) % Baso % (Auto) 0.0 (0.0-1.5) % Neut # (Auto) 7.1 H (1.4-5.7) K/uL Lymph # (Auto) 0.8 (0.6-2.4) K/uL [place] # (Auto) 0.1 (0.0-0.8) K/uL Eos # (Auto) 0.0 (0.0-0.7) K/uL Baso # (Auto) 0.0 (0.0-0.1) K/uL Nucleated RBC % 0.0 /100WBC Nucleated RBCs # 0 K/uL Lactate 1.9 (0.20-2.00) mmol/L Sodium (136-148) mmol/L Potassium (3.5-5.1) mmol/L Chloride (98-107) mmol/L Carbon Dioxide (21.0-32.0) mmol/L BUN (7.0-18.0) mg/dL Creatinine (0.8-1.3) mg/dL Est Cr Clr Drug Dosing mL/min Estimated GFR (MDRD) ml/min Glucose (74-106) mg/dL Calcium (8.5-10.1) mg/dL Total Bilirubin (0.2-1.0) mg/dL AST (15-37) IU/L ALT (14-63) IU/L Alkaline Phosphatase (46-116) U/L Total Protein (6.4-8.2) g/dL Albumin (3.4-5.0) g/dL Globulin (2.0-3.5) g/dL Albumin/Globulin Ratio (1.3-2.8) Urine Color YELLOW Urine Appearance CLEAR Urine pH 5.5 (5.0-8.0) Ur Specific [place] >= 1.030 (1.001-1.035) Urine Protein NEGATIVE (NEGATIVE) mg/dL Urine Glucose (UA) 100 H (NEGATIVE) mg/dL Urine Ketones NEGATIVE (NEGATIVE) mg/dL Urine Occult Blood MODERATE (NEGATIVE) Urine Nitrite NEGATIVE (NEGATIVE) Urine Bilirubin NEGATIVE (NEGATIVE) Urine Urobilinogen 0.2 (<2.0) EU/dL Ur Leukocyte Esterase NEGATIVE (NEGATIVE) Urine RBC 2-3 (0-2/HPF) Urine WBC 1-2 (0-5/HPF) Ur Epithelial Cells RARE (NONE-FEW) Amorphous Sediment FEW (NEGATIVE) Urine Bacteria FEW (NEGATIVE) Urine Mucus FEW (NONE-MOD) 07/03/18 Range/Units 05:56 WBC (4.0-11.0) K/uL RBC (4.50-5.90) M/uL Hgb (13.0-17.0) g/dL Hct (38.0-50.0) % MCV (80.0-98.0) fL MCH (27.0-32.0) pg MCHC (31.0-37.0) g/dL RDW Std Deviation (28.0-62.0) fl RDW Coeff of Michael (11.0-15.0) % Plt Count (150-400) K/uL MPV (7.40-12.00) fL Neut % (Auto) (48.0-80.0) % Lymph % (Auto) (16.0-40.0) % [place] % (Auto) (0.0-15.0) % Eos % (Auto) (0.0-7.0) % Baso % (Auto) (0.0-1.5) % Neut # (Auto) (1.4-5.7) K/uL Lymph # (Auto) (0.6-2.4) K/uL [place] # (Auto) (0.0-0.8) K/uL Eos # (Auto) (0.0-0.7) K/uL Baso # (Auto) (0.0-0.1) K/uL Nucleated RBC % /100WBC Nucleated RBCs # K/uL Lactate (0.20-2.00) mmol/L Sodium 142 (136-148) mmol/L Potassium 4.5 (3.5-5.1) mmol/L Chloride 111 H (98-107) mmol/L Carbon Dioxide 24.0 (21.0-32.0) mmol/L BUN 20 H (7.0-18.0) mg/dL Creatinine 1.4 H (0.8-1.3) mg/dL Est Cr Clr Drug Dosing 0.10 mL/min Estimated GFR (MDRD) 50.2 ml/min Glucose 157 H (74-106) mg/dL Calcium 7.9 L (8.5-10.1) mg/dL Total Bilirubin 0.3 (0.2-1.0) mg/dL AST 13 L (15-37) IU/L ALT 15 (14-63) IU/L Alkaline Phosphatase 85 (46-116) U/L Total Protein 6.2 L (6.4-8.2) g/dL Albumin 2.8 L (3.4-5.0) g/dL Globulin 3.4 (2.0-3.5) g/dL Albumin/Globulin Ratio 0.8 L (1.3-2.8) Urine Color Urine Appearance Urine pH (5.0-8.0) Ur Specific [place] (1.001-1.035) Urine Protein (NEGATIVE) mg/dL Urine Glucose (UA) (NEGATIVE) mg/dL Urine Ketones (NEGATIVE) mg/dL Urine Occult Blood (NEGATIVE) Urine Nitrite (NEGATIVE) Urine Bilirubin (NEGATIVE) Urine Urobilinogen (<2.0) EU/dL Ur Leukocyte Esterase (NEGATIVE) Urine RBC (0-2/HPF) Urine WBC (0-5/HPF) Ur Epithelial Cells (NONE-FEW) Amorphous Sediment (NEGATIVE) Urine Bacteria (NEGATIVE) Urine Mucus (NONE-MOD) Med Orders - Current: Current Medications Acetaminophen (Tylenol) 650 mg PO Q4H PRN PRN Reason: Pain (Mild 1-3)/fever Last Admin: 07/02/18 21:23 Dose: 650 mg Albuterol/Ipratropium (Duoneb 3.0-0.5 Mg/3 Ml) 3 ml NEB Q4HRRT [facility] Last Admin: 07/03/18 06:02 Dose: 3 ml Allopurinol (Zyloprim) 100 mg PO BEDTIME [facility] Last Admin: 07/02/18 21:18 Dose: 100 mg Atorvastatin Calcium (Lipitor) 10 mg PO BEDTIME [facility] Last Admin: 07/02/18 21:18 Dose: 10 mg Calcium Citrate (Calcitrate + Vit D Cap (315 Mg/250 Units)) 2 each PO BEDTIME [facility] Last Admin: 07/02/18 23:07 Dose: Not Given Cholecalciferol (Vitamin D3) 2,000 units PO BEDTIME [facility] Last Admin: 07/02/18 21:18 Dose: 2,000 units Clopidogrel Bisulfate (Plavix) 75 mg PO ACBREAKFAST [facility] Last Admin: 07/03/18 06:39 Dose: 75 mg Enoxaparin Sodium (Lovenox) 40 mg SUBCUT Q24H [facility] Last Admin: 07/02/18 10:51 Dose: 40 mg Levofloxacin/Dextrose 750 mg/ (Premix) 150 mls @ 100 mls/hr IV Q24H [facility] Last Admin: 07/02/18 10:50 Dose: 100 mls/hr Sodium Chloride (Normal Saline) 1,000 mls @ 150 mls/hr IV ASDIRECTED [facility] Last Admin: 07/03/18 02:44 Dose: 150 mls/hr Levothyroxine Sodium (Synthroid) 50 mcg PO ACBREAKFAST [facility] Last Admin: 07/03/18 06:40 Dose: 50 mcg Methylprednisolone Sodium Succinate (Solu-Medrol) 125 mg IVPUSH Q8H [facility] Last Admin: 07/03/18 03:32 Dose: 125 mg Metoprolol Tartrate (Lopressor) 25 mg PO ACBREAKFAST [facility] Last Admin: 07/03/18 06:39 Dose: 25 mg Ondansetron HCl (Zofran) 4 mg IVPUSH Q4H PRN PRN Reason: Nausea/Vomiting Oxycodone HCl (Oxycodone) 5 mg PO Q6H PRN PRN Reason: Pain Last Admin: 07/03/18 08:01 Dose: 5 mg Pantoprazole Sodium (Protonix) 40 mg PO BEDTIME [facility] Last Admin: 07/02/18 21:18 Dose: 40 mg Sertraline HCl (Zoloft) 12.5 mg PO BEDTIME [facility] Last Admin: 07/02/18 21:19 Dose: 12.5 mg Sodium Chloride (Saline Flush) 10 ml FLUSH ASDIRECTED PRN PRN Reason: Keep Vein Open Last Admin: 07/02/18 08:13 Dose: 10 ml Sodium Chloride (Saline Flush) 2.5 ml FLUSH ASDIRECTED PRN PRN Reason: Keep Vein Open Sodium Chloride (Saline Flush) 10 ml FLUSH ASDIRECTED PRN PRN Reason: Keep Vein Open Sodium Chloride (Saline Flush) 2.5 ml FLUSH ASDIRECTED PRN PRN Reason: Keep Vein Open Spironolactone (Aldactone) 50 mg PO ACBREAKFAST [facility] Last Admin: 07/03/18 06:40 Dose: 50 mg Tamsulosin HCl (Flomax) 0.4 mg PO BEDTIME [facility] Last Admin: 07/02/18 21:19 Dose: 0.4 mg Discontinued Medications Albuterol/Ipratropium (Duoneb 3.0-0.5 Mg/3 Ml) 3 ml NEB ONETIME ONE Stop: 07/02/18 06:30 Last Admin: 07/02/18 06:42 Dose: 3 ml Albuterol/Ipratropium (Duoneb 3.0-0.5 Mg/3 Ml) 3 ml NEB Q4HRRT PRN PRN Reason: Shortness Of Breath/wheezing Sodium Chloride (Normal Saline) 1,000 mls @ 999 mls/hr IV .Bolus ONE Stop: 07/02/18 07:58 Last Infusion: 07/02/18 08:00 Dose: 83 mls/hr Methylprednisolone Sodium Succinate (Solu-Medrol) 125 mg IVPUSH ONETIME ONE Stop: 07/02/18 06:43 Last Admin: 07/02/18 06:56 Dose: 125 mg Morphine Sulfate (Morphine) 2 mg IVPUSH ONETIME ONE Stop: 07/02/18 08:04 Last Admin: 07/02/18 08:13 Dose: 2 mg - Exam General: Alert, Oriented, Cooperative Lungs: Decreased Breath Sounds, Wheezing Cardiovascular: Regular Rate, Regular Rhythm GI/Abdominal Exam: Normal Bowel Sounds, Soft, Non-Tender, No Distention Back Exam: Other (left mid-back to flank- slight erythema, tender to palpation, no ecchymosis) Skin: Warm, Dry, Intact Neurological: No New Focal Deficit Psy/Mental Status: Alert, Normal Affect, Normal Mood - Problem List Review Problem List Initiated/Reviewed/Updated: Yes - My Orders Last 24 Hours: My Active Orders 07/02/18 08:55 Telemetry Monitoring [Cardiac Monitoring] [RC] Q8H 07/02/18 12:00 methylPREDNISolone Sod Succ [Solu-MEDROL] 125 mg IVPUSH Q8H 07/02/18 12:17 Resuscitation Status Routine 07/02/18 18:00 Albuterol/Ipratropium [DuoNeb 3.0-0.5 MG/3 ML] 3 ml NEB Q4HRRT 07/02/18 21:00 Allopurinol [Zyloprim] 100 mg PO BEDTIME Calcium Citrate/Vitamin D3 [Calcitrate + Vit D Cap (315 MG/250 UNITS)] 2 each PO BEDTIME Cholecalciferol (Vitamin D3) [Vitamin D3] 2,000 units PO BEDTIME Pantoprazole [ProTONIX] 40 mg PO BEDTIME Sertraline [Zoloft] 12.5 mg PO BEDTIME Tamsulosin [Flomax] 0.4 mg PO BEDTIME atorvaSTATin [Lipitor] 10 mg PO BEDTIME 07/03/18 07:30 Clopidogrel [Plavix] 75 mg PO ACBREAKFAST Levothyroxine [Synthroid] 50 mcg PO ACBREAKFAST Metoprolol Tartrate [Lopressor] 25 mg PO ACBREAKFAST Spironolactone [Aldactone] 50 mg PO ACBREAKFAST 07/03/18 07:37 Incentive Spirometry [RT Incentive Spirometry] [RC] ASDIRECTED - Plan Plan:: 1. Syncopal episode likely vasovagal related to coughing- monitor on telemetry, no major events on tele last night, no syncopal episodes while admitted. 2. Bronchitis- duonebs q 4, solumedrol 125 mg spaced from q8 to q12, continue levaquin. Use incentive spirometer. Monitor on pulse ox. 3. RADHA- improved with IV fluids, will slow down rate to 100 ml/hr
[2018-07-03] MEDS: Levofloxacin/Dextrose 5%-Water 750 MG in Premix Bag 1 BAG IV SCH (09:23)
[2018-07-03] MEDS: Enoxaparin 40 MG/0.4 ML Syringe SUBCUT SCH (10:26)
[2018-07-03] MEDS ORDERED: HYDROmorphone 1 MG/ML Syringe IVPUSH ONE (18:46)
[2018-07-03] MEDS: atorvaSTATin 10 MG Tab PO SCH (21:15)
[2018-07-03] MEDS: Pantoprazole 40 MG Tab.CR PO SCH (21:15)
[2018-07-03] MEDS: Tamsulosin 0.4 MG Cap.ER PO SCH (21:15)
[2018-07-03] MEDS: Allopurinol 100 MG Tab PO SCH (21:15)
[2018-07-03] MEDS: Sertraline 25 MG Tab PO SCH (21:15)
[2018-07-03] MEDS: Cholecalciferol (Vitamin D3) 1,000 Unit Tab PO SCH (21:16)
[2018-07-03] MEDS ORDERED: Albuterol/Ipratropium 3.0-0.5 MG/3 ML Neb Soln NEB PRN (21:50)
[2018-07-03] MEDS: Acetaminophen 325 MG Tab PO PRN (21:54)
[2018-07-03] MEDS: Calcium Citrate/Vitamin D3 Tablet PO SCH (22:58)
[2018-07-04] MEDS: methylPREDNISolone Sodium Succinate 125 MG/2 ML SDV IVPUSH SCH (01:12)
[2018-07-04] MEDS: Sodium Chloride 0.9% 1,000 ML IV SCH (05:44)
[2018-07-04] MEDS: Levothyroxine 50 MCG Tab PO SCH (07:15)
[2018-07-04] MEDS: Spironolactone 25 MG Tab PO SCH (07:15)
[2018-07-04] MEDS: Clopidogrel 75 MG Tab PO SCH (07:16)
[2018-07-04] MEDS: Metoprolol Tartrate 25 MG Tab PO SCH (07:16)
[2018-07-04] MEDS: Enoxaparin 40 MG/0.4 ML Syringe SUBCUT SCH (08:50)
[2018-07-04] MEDS: Levofloxacin/Dextrose 5%-Water 750 MG in Premix Bag 1 BAG IV SCH (08:51)
[2018-07-04] MEDS: oxyCODONE 5 MG Tab PO PRN (08:51)
--- NOTE | 2018-07-04 11:11 | PCM.DCSUM1 ---
Discharge Summary - Hospital Course Free Text/Narrative:: He was admitted for syncope that was thought to be vasovagal syncope related to coughing. - Discharge Data Discharge Date: 07/04/18 Discharge Disposition: Home, Self-Care 01 Condition: Good - Patient Summary/Data Hospital Course: He was started on duonebs and levaquin . HE feels much better on the day of discharge and wants to go home. He feels that he can follow up when he returns home to [place] later this month. He had no recurrence of syncope after admission. He was on telemetry . ON the evening before discharge he was noted to have a possible brief episode of tachycardia on telemetry but when he was evaluated by nursing staff he was noted to have a pulse of 110 per minute and it was thought that the telemetry strip was likely affected by artifact. His lungs are clear to auscultation at discharge. Discharge home on levaquin 500 mg daily x 6 more days and albuterol inhaler prn. - Discharge Plan Prescriptions/Med Rec: Albuterol [Proventil HFA] 2 puff INH Q4H PRN #1 inhaler PRN Reason: Wheezing Levofloxacin [Levaquin] 500 mg PO DAILY #6 tablet Home Medications: Home Meds Allopurinol [Zyloprim] 100 mg PO BEDTIME 07/02/18 [History] Calcium Carbonate [Calcium] 600 mg PO BEDTIME 07/02/18 [History] Cholecalciferol (Vitamin D3) [Vitamin D] 2,000 unit PO BEDTIME 07/02/18 [History ] Clopidogrel [Plavix] 75 mg PO ACBREAKFAST 07/02/18 [History] Cyanocobalamin (Vitamin B-12) [Cyanocobalamin Injection] 1,000 mcg IJ ASDIRECTED 07/02/18 [History] Levothyroxine [Synthroid] 50 mcg PO ACBREAKFAST 07/02/18 [History] Metoprolol Tartrate 25 mg PO ACBREAKFAST 07/02/18 [History] Pantoprazole Sodium [Protonix] 40 mg PO BEDTIME 07/02/18 [History] Sertraline [Zoloft] 12.5 mg BEDTIME 07/02/18 [History] Spironolactone 50 mg PO ACBREAKFAST 07/02/18 [History] Tamsulosin [Flomax] 0.4 mg PO BEDTIME 07/02/18 [History] atorvaSTATin [Lipitor] 10 mg PO BEDTIME 07/02/18 [History] Albuterol [Proventil HFA] 2 puff INH Q4H PRN #1 inhaler 07/04/18 [Rx] Levofloxacin [Levaquin] 500 mg PO DAILY #6 tablet 07/04/18 [Rx] Patient Handouts: Near-Syncope, [id number] - General Info Date of Service: 07/04/18 - Patient Data Vitals - Most Recent: Last Vital Signs Temp 97.2 F 07/04/18 05:00 Pulse 68 07/04/18 07:16 Resp 18 07/04/18 05:00 BP 188/63 H 07/04/18 07:16 Pulse Ox 96 07/04/18 05:00 Weight - Most Recent: 144.5 g I&O - Last 24 hours: Intake & Output 07/03/18 07/04/18 07/04/18 22:59 06:59 14:59 Intake Total 600 500 Output Total 400 300 Balance 200 200 Lab Results - Last 24 hrs: Laboratory Results - last 24 hr 07/04/18 07/04/18 Range/Units 05:40 05:40 WBC 10.00 (4.0-11.0) K/uL RBC 3.70 L (4.50-5.90) M/uL Hgb 11.2 L (13.0-17.0) g/dL Hct 35.9 L (38.0-50.0) % MCV 97.0 (80.0-98.0) fL MCH 30.3 (27.0-32.0) pg MCHC 31.2 (31.0-37.0) g/dL RDW Std Deviation 53.8 (28.0-62.0) fl RDW Coeff of Michael 15 (11.0-15.0) % Plt Count 129 L (150-400) K/uL MPV 11.30 (7.40-12.00) fL Neut % (Auto) 91.0 H (48.0-80.0) % Lymph % (Auto) 6.5 L (16.0-40.0) % [place] % (Auto) 2.5 (0.0-15.0) % Eos % (Auto) 0.0 (0.0-7.0) % Baso % (Auto) 0.0 (0.0-1.5) % Neut # (Auto) 9.1 H (1.4-5.7) K/uL Lymph # (Auto) 0.7 (0.6-2.4) K/uL [place] # (Auto) 0.3 (0.0-0.8) K/uL Eos # (Auto) 0.0 (0.0-0.7) K/uL Baso # (Auto) 0.0 (0.0-0.1) K/uL Nucleated RBC % 0.2 /100WBC Nucleated RBCs # 0 K/uL Sodium 142 (136-148) mmol/L Potassium 4.5 (3.5-5.1) mmol/L Chloride 110 H (98-107) mmol/L Carbon Dioxide 22.9 (21.0-32.0) mmol/L BUN 25 H (7.0-18.0) mg/dL Creatinine 1.5 H (0.8-1.3) mg/dL Est Cr Clr Drug Dosing 0.09 mL/min Estimated GFR (MDRD) 46.4 ml/min Glucose 124 H (74-106) mg/dL Calcium 7.7 L (8.5-10.1) mg/dL Med Orders - Current: Current Medications Acetaminophen (Tylenol) 650 mg PO Q4H PRN PRN Reason: Pain (Mild 1-3)/fever Last Admin: 07/03/18 21:54 Dose: 650 mg Albuterol/Ipratropium (Duoneb 3.0-0.5 Mg/3 Ml) 3 ml NEB Q4HRRT PRN PRN Reason: Wheezing Allopurinol (Zyloprim) 100 mg PO BEDTIME MICHELLE Last Admin: 07/03/18 21:15 Dose: 100 mg Atorvastatin Calcium (Lipitor) 10 mg PO BEDTIME MICHELLE Last Admin: 07/03/18 21:15 Dose: 10 mg Calcium Citrate (Calcitrate + Vit D Cap (315 Mg/250 Units)) 2 each PO BEDTIME MICHELLE Last Admin: 07/03/18 22:58 Dose: Not Given Cholecalciferol (Vitamin D3) 2,000 units PO BEDTIME MICHELLE Last Admin: 07/03/18 21:16 Dose: 2,000 units Clopidogrel Bisulfate (Plavix) 75 mg PO ACBREAKFAST [facility] Last Admin: 07/04/18 07:16 Dose: 75 mg Enoxaparin Sodium (Lovenox) 40 mg SUBCUT Q24H [facility] Last Admin: 07/04/18 08:50 Dose: 40 mg Levofloxacin/Dextrose 750 mg/ (Premix) 150 mls @ 100 mls/hr IV Q24H [facility] Last Admin: 07/04/18 08:51 Dose: 100 mls/hr Sodium Chloride (Normal Saline) 1,000 mls @ 100 mls/hr IV ASDIRECTED [facility] Last Admin: 07/04/18 05:44 Dose: 100 mls/hr Levothyroxine Sodium (Synthroid) 50 mcg PO ACBREAKFAST [facility] Last Admin: 07/04/18 07:15 Dose: 50 mcg Methylprednisolone Sodium Succinate (Solu-Medrol) 125 mg IVPUSH Q12H [facility] Last Admin: 07/04/18 01:12 Dose: 125 mg Metoprolol Tartrate (Lopressor) 25 mg PO ACBREAKFAST [facility] Last Admin: 07/04/18 07:16 Dose: 25 mg Ondansetron HCl (Zofran) 4 mg IVPUSH Q4H PRN PRN Reason: Nausea/Vomiting Oxycodone HCl (Oxycodone) 5 mg PO Q6H PRN PRN Reason: Pain Last Admin: 07/04/18 08:51 Dose: 5 mg Pantoprazole Sodium (Protonix) 40 mg PO BEDTIME [facility] Last Admin: 07/03/18 21:15 Dose: 40 mg Sertraline HCl (Zoloft) 12.5 mg PO BEDTIME [facility] Last Admin: 07/03/18 21:15 Dose: 12.5 mg Sodium Chloride (Saline Flush) 10 ml FLUSH ASDIRECTED PRN PRN Reason: Keep Vein Open Last Admin: 07/02/18 08:13 Dose: 10 ml Sodium Chloride (Saline Flush) 2.5 ml FLUSH ASDIRECTED PRN PRN Reason: Keep Vein Open Sodium Chloride (Saline Flush) 10 ml FLUSH ASDIRECTED PRN PRN Reason: Keep Vein Open Sodium Chloride (Saline Flush) 2.5 ml FLUSH ASDIRECTED PRN PRN Reason: Keep Vein Open Spironolactone (Aldactone) 50 mg PO ACBREAKFAST [facility] Last Admin: 07/04/18 07:15 Dose: 50 mg Tamsulosin HCl (Flomax) 0.4 mg PO BEDTIME [facility] Last Admin: 07/03/18 21:15 Dose: 0.4 mg Discontinued Medications Albuterol/Ipratropium (Duoneb 3.0-0.5 Mg/3 Ml) 3 ml NEB ONETIME ONE Stop: 07/02/18 06:30 Last Admin: 07/02/18 06:42 Dose: 3 ml Albuterol/Ipratropium (Duoneb 3.0-0.5 Mg/3 Ml) 3 ml NEB Q4HRRT PRN PRN Reason: Shortness Of Breath/wheezing Albuterol/Ipratropium (Duoneb 3.0-0.5 Mg/3 Ml) 3 ml NEB Q4HRRT MICHELLE Stop: 07/03/18 21:50 Last Admin: 07/03/18 17:33 Dose: 3 ml Hydromorphone HCl (Dilaudid) 1 mg IVPUSH ONETIME ONE Stop: 07/03/18 18:47 Last Admin: 07/03/18 19:03 Dose: 1 mg Sodium Chloride (Normal Saline) 1,000 mls @ 999 mls/hr IV .Bolus ONE Stop: 07/02/18 07:58 Last Infusion: 07/02/18 08:00 Dose: 83 mls/hr Methylprednisolone Sodium Succinate (Solu-Medrol) 125 mg IVPUSH ONETIME ONE Stop: 07/02/18 06:43 Last Admin: 07/02/18 06:56 Dose: 125 mg Methylprednisolone Sodium Succinate (Solu-Medrol) 125 mg IVPUSH Q8H [facility] Last Admin: 07/03/18 12:29 Dose: Not Given Morphine Sulfate (Morphine) 2 mg IVPUSH ONETIME ONE Stop: 07/02/18 08:04 Last Admin: 07/02/18 08:13 Dose: 2 mg
--- NOTE | 2018-07-06 14:30 | CT ---
EXAM DATE: 07/02/18 PATIENT'S AGE: 68 Patient: MARISOL MATTA Facility: [facility] Site . Site : 1950 Study: CT-Chest [id number]/14/2018 7:57:53 AM Ordering Physician: Karely Rojas Final Report: INDICATION: Syncopal episode. Trauma. TECHNIQUE: Noncontrast axial images. Sagittal and coronal reconstructions. COMPARISON: None. FINDINGS: The heart is not significantly enlarged. No pericardial effusion. Minor coronary artery calcifications. Mild atherosclerotic calcifications are also seen in the thoracic aorta, which is normal in caliber. No mediastinal hematoma. No lymphadenopathy. No evidence of a pulmonary contusion. Incidental tiny subpleural nodules in the left lower lobe on axial images 70 and 75 are likely benign. Mild bibasilar atelectasis. No pleural fluid or pneumothorax. No acute bony abnormality. A few incidental vertebral body hemangiomas are noted. IMPRESSION: 1. No evidence of an acute traumatic thoracic injury. 2. Incidental findings as noted above. Dictated by Aníbal Guzman MD @ 07/02/2018 8:12:18 AM Please note that all CT scans at this facility use dose modulation, iterative reconstruction, and/or weight-based dosing when appropriate to reduce radiation dose to as low as reasonably achievable. Dictated by: Aníbal Guzman MD @ 07/02/2018 08:15:29 Signed by: Aníbal Guzman MD @07/02/2018 8:15:29 AM (Electronic Signature) Report Signed by Proxy. [facility]
--- NOTE | 2018-07-06 14:31 | CT ---
EXAM DATE: 07/02/18 PATIENT'S AGE: 68 Patient: MARISOL MATTA Facility: [facility] Site . Site : 1950 Study: CT-Abdomen/Pelvis [id number]/14/2018 7:56:00 AM Ordering Physician: Karely Rojas Final Report: INDICATION: Syncopal episode. Trauma. TECHNIQUE: Noncontrast axial images. Sagittal and coronal reconstructions. COMPARISON: None. FINDINGS: The unenhanced liver, spleen, and pancreas, adrenal glands and kidneys are intact. The kidneys are mildly atrophic, with a few low-density lesions seen in both kidneys, which are suboptimally evaluated on this unenhanced study. Benign cysts are favored. There are also a few renal lesions which are relatively hyperdense. These could represent proteinaceous or hemorrhagic cysts although are indeterminate. Postsurgical changes are seen from a cholecystectomy. 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 There is no evidence of an acute GI tract abnormality. No free air or free fluid. Prior midline ventral hernia repair. The abdominal aorta is intact. Mild atherosclerotic changes are noted. Urinary bladder is intact. Prostate is mildly enlarged. There are fat containing inguinal hernias, right greater than left. No acute bony abnormality. A few incidental vertebral body hemangiomas are noted. IMPRESSION: 1. No evidence of an acute traumatic abdominal or pelvic injury. 2. Renal lesions as noted. Cysts are favored although the hyperdense renal lesions are indeterminate. Comparison with prior studies is recommended. If there are no prior studies and if clinically indicated, these could be further assessed with a contrast enhanced study on a nonemergent basis. 3. Incidental findings as noted. Dictated by Aníbal Guzman MD @ 07/02/2018 8:30:25 AM Please note that all CT scans at this facility use dose modulation, iterative reconstruction, and/or weight-based dosing when appropriate to reduce radiation dose to as low as reasonably achievable. Dictated by: Aníbal Guzman MD @ 07/02/2018 08:30:35 Signed by: Aníbal Guzman MD @07/02/2018 8:30:35 AM (Electronic Signature) Report Signed by Proxy. [facility]
--- NOTE | 2018-07-06 14:32 | CR ---
EXAM DATE: 07/02/18 PATIENT'S AGE: 68 Patient: MARISOL MATTA Facility: [facility] Site . Site : 1950 Study: XRay-Chest [id number]/14/2018 6:54:42 AM Ordering Physician: Karely Rojas Final Report: INDICATION: Pain. Short of breath. TECHNIQUE: Portable upright AP view of the chest. COMPARISON: None. FINDINGS: Compromised by body habitus. The heart is borderline enlarged. Mediastinal and hilar contours are grossly unremarkable. There is low-grade pulmonary vascular congestion without evidence of overt failure. No appreciable airspace opacities to suggest pneumonia. No pleural fluid or pneumothorax. IMPRESSION: Borderline enlarged heart with low-grade pulmonary vascular congestion. Dictated by Aníbal Guzamn MD @ 07/02/2018 7:12:17 AM Dictated by: Aníbal Guzman MD @ 07/02/2018 07:12:26 Signed by: Aníbal Guzman MD @07/02/2018 7:12:26 AM (Electronic Signature) Report Signed by Proxy. [facility]
--- NOTE | 2018-07-06 14:33 | CT ---
EXAM DATE: 07/02/18 PATIENT'S AGE: 68 Patient: MARISOL MATTA Facility: [facility] Site . Site : 1950 Study: CT-Head [id number]/14/2018 7:47:43 AM Ordering Physician: Karely Rojas Final Report: INDICATION: Syncopal episode. TECHNIQUE: Noncontrast axial images with coronal and sagittal reconstructions. COMPARISON: None. FINDINGS: There is no abnormal intracranial mass effect or midline shift. No intracranial hemorrhage. No areas of abnormal attenuation are seen within the brain. CSF spaces are age-appropriate. Osseous structures are intact. Incidental posterior superior scalp lesion. This could represent a sebaceous cyst. Visualized paranasal sinuses are clear. Mastoids are clear. IMPRESSION: No CT evidence of an acute intracranial abnormality. Dictated by Aníbal Guzman MD @ 07/02/2018 7:59:49 AM Please note that all CT scans at this facility use dose modulation, iterative reconstruction, and/or weight-based dosing when appropriate to reduce radiation dose to as low as reasonably achievable. Dictated by: Aníbal Guzman MD @ 07/02/2018 08:00:08 Signed by: Aníbal Guzman MD @07/02/2018 8:00:08 AM (Electronic Signature) Report Signed by Proxy. [facility]
== END 2018-07-04 12:47 | disposition home or self-care (01) ==
LOC: MW.ED 06:15 → UNDOADMOB 08:55 → MW.MS 08:55
PROVIDERS: ADMIT Internal Medicine; ATTEND Internal Medicine
DX: R55 Syncope and collapse (principal); J40 Bronchitis, not specified as acute or chronic; N17.9 Acute kidney failure, unspecified; I10 Essential (primary) hypertension; K21.9 Gastro-esophageal reflux disease without esophagitis; E03.9 Hypothyroidism, unspecified; Z79.899 Other long term (current) drug therapy
CPT/HCPCS: 36415; 70450; 71045; 71250; 74176; 80048; 80053; 81001; 83605; 83690; 83880; 84484; 85025; 85610; 93005; 94640; 96361; 96374; 96375; 99285; A9270; J1170; J1650; J1956; J2270; J2930; J7040; 96365; 96372; 96376; G0378; J7620-GY